=== PATIENT | female | born 1960 | race Caucasian/White ===

== ENCOUNTER 2018-01-04 18:22 | Inpatient (IN) ==
--- NOTE | 2018-01-04 19:15 | Emergency Department Note ---
Disposition Clinical Impression: Dehydration, Diarrhea, Hypokalemia, Abdominal pain, Pancreatitis Disposition: Admitted As Inpatient Condition: Serious Referrals: Benji Chavarria MD [Primary Care Provider] - Time of Disposition: 19:30 General Adult HPI - General Chief complaint: ED General Medical Stated complaint: general Time Seen by Provider: 01/04/18 18:26 Source: patient Limitations: no limitations Nursing Notes Reviewed: Yes Vital Signs Reviewed: Yes - History of Present Illness HPI Narrative: Patient presents today with CC of: abnormal labwork, abd pain, diarrhea Patient describes issue began around about 7 days ago patient started having abdominal discomfort nausea and diarrhea last Wednesday she had significant amounts intermittently she has had irritation to her bottom causing a little bit of blood when she wipes. Her provider today check lab work and found her amylase and lipase elevated as well as her potassium significantly low so they recommended she come to the hospital for admission and IV hydration and replacement of her potassium. Patient has had 67 loose diarrhea stools today and she also brought in a stool specimen. 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 She generally feels weak and does not really have any abdominal pain at this time and she is not actually had any vomiting. Pain Scale: 3 - Related Data Home Medications Medication Instructions Recorded Confirmed Buspirone [Buspar] 15 mg PO BID 12/31/14 01/04/18 [place]-3 Fatty Acids/Fish Oil [Fish 1 cap PO DAILY 12/31/14 01/04/18 Oil 1,000 mg Capsule] Zonisamide [Zonegran] 200 mg PO BID 12/31/14 01/04/18 Cetirizine HCl [Zyrtec] 10 mg PO BID 04/11/15 01/04/18 Citalopram Hydrobromide [Celexa] 20 mg PO DAILY 04/11/15 01/04/18 Ferrous Sulfate 325 mg PO DAILY 04/11/15 01/04/18 Magnesium 250 mg PO HS 04/11/15 01/04/18 Multivitamin/Iron/Folic Acid 1 each PO DAILY 04/11/15 01/04/18 [Centrum Complete Multivit Tab] DiphenhydraMINE [Benadryl] 25 mg PO BID 08/18/17 01/04/18 Docusate [Colace] 100 mg PO DAILY 08/18/17 01/04/18 Sennosides [Senna] 8.6 mg PO DAILY 08/18/17 01/04/18 Esomeprazole Magnesium [Nexium] 20 mg PO DAILY 01/04/18 01/04/18 Ranitidine HCl [Acid [employer] Architect] 150 mg PO BID 01/04/18 01/04/18 Previous Rx's Medication Instructions Recorded Pantoprazole Sodium [Protonix] 1 tab PO DAILY #30 tablet. 04/27/16 Calcium Carbonate/Vitamin D3 1 each PO DAILY #30 tablet 08/03/17 [Calcium 600 + Vit D Tablet] Letrozole [Femara] 2.5 mg PO DAILY #90 tablet 12/03/17 Allergies Allergy/AdvReac Type Severity Reaction Status Date / Time No Known Allergies Allergy Verified 01/04/18 18:45 All systems ED: reviewed and negative except as stated. 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 The patient 's medications, allergies, and medical history was reviewed. Family, Social & Surg histories were reviewed and are not relevant except as noted above in the history of present illness, or below in the respective specific section. I have reviewed and agree with all vital signs synchronously available in EMR at the time of this dictation. Times documented are the time of computer entry, are not necessarily the time the event occurred. At least 10 systems reviewed with patient or surrogate during physical exam and are otherwise negative. Physical EXAM: General ~ Constitutional: Conscious & cooperative , generally healthy appearance Head: NCAT Eyes: Sclera white , conjunctiva clear , PERRL, non-icteric ENT : Nose with pink nasal mucosa , nares patent, non tender without bleeding Mouth - mucous membrane moist but tacky dry , pink , no lesions , no trismus Neck - no masses , supple , no cervical spinous process tenderness Pharynx - no exudate , no petechia or obvious lesions , no airway obstruction or stridor Hematologic ~ Lymphatic ~ Immunologic: Lymphadenopathy normal , no petechia , Skin color, nails and pulses unremarkable. Heart ~ Chest: Reg rate , nml Rhythm , nl S1/S2 , no MRG Lungs: Breath sounds equal , clear to auscultation bilaterally , no wheezing, no rales or rhonchi , no CVA tenderness Gastrointestinal ~ Abd: Soft & slight epigastric tenderness , BS + in 4 quads , No HSM or masses , no peritoneal signs, no rebound or guarding GenitoUrinary: Deferred Musculoskeletal ~ Back ~ Extremities: Warm and w/o clubbing , cyanosis , or edema. No point tenderness , good ROM of major joints Neurologic: Cranial nerves grossly intact, good muscle strength , attention good , cooperative , Alert and oriented x4 Psychiatric: Calm , Insight and mood appropriate , Skin: No rashes , good skin turgor , cap refill 3 seconds , warm and dry - General Limitations: no limitations General appearance: alert, in no apparent distress Course Vital Signs Temperature 98.3 F 01/04/18 18:39 Pulse Rate 98 01/04/18 18:39 Respiratory Rate 16 01/04/18 18:39 Blood Pressure 131/84 01/04/18 18:39 O2 Sat by Pulse Oximetry 95 01/04/18 18:39 Temperature 98.3 F 01/04/18 18:39 Pulse Rate 98 01/04/18 18:39 Respiratory Rate 16 01/04/18 18:39 Blood Pressure 131/84 01/04/18 18:39 O2 Sat by Pulse Oximetry 95 01/04/18 18:39 Oxygen Delivery Oxygen Delivery Room Air Medical Decision Making - MDM Narrative Medical decision making narrative: MDM: History and physical exam is consistent with - abdominal pain, diarrhea, dehydration, hypokalemia, mild pancreatitis DDx included multiple etiologies for the symptoms such as - electrolyte abnormality, ureterolithiasis, diverticulitis, adhesions, bowel obstruction, mesenteric ischemia, AAA, dissection, UTI, sepsis. XRAYS: Not indicated at this time Critical Care: None Condition and evaluation here was discussed in detail. Patient is agreeable to being admitted to the hospital for IV fluids and potassium replacement, recheck of her lab work in the morning. I discussed patient detail with Dr. Laird who agreed to the patient for IV fluids and potassium replacement as well as monitoring of lipase - Lab Data Lab Results 01/04/18 Range/Units 18:00 Stool Occult Blood Positive A (Negative) - EKG Data EKG #1 EKG results narrative: EKG shows sinus rhythm with nonspecific ST and T-wave changes primarily T-wave flattening. There is no acute injury pattern. Patient's rate is 85. AL interval 157. QRS duration 87. QTC 365.
[2018-01-04] MEDS ORDERED: 0.9 % Sodium Chloride w KCl 20 MEQ/1,000 ML MLS IVC SCH (19:30)
[2018-01-04] MEDS ORDERED: Naloxone 0.4 MG/ML INJ IVP PRN ×2 (19:38→20:45)
[2018-01-04] MEDS: Magnesium Oxide 400 MG TABLET PO SCH (21:00)
[2018-01-04] MEDS: Loratadine 10 MG TABLET PO SCH (21:00)
[2018-01-04] MEDS: Famotidine 20 MG TABLET PO SCH (21:00)
[2018-01-04] MEDS: 0.9 % Sodium Chloride w KCl 20 MEQ/1,000 ML MLS IVC SCH (21:45)
[2018-01-05] MEDS: 0.9 % Sodium Chloride w KCl 20 MEQ/1,000 ML MLS IVC SCH ×3 (02:28→16:37)
[2018-01-05 04:47] LABS: Basophils # 0.1 K/mcL (0.0-0.2); Eosinophils # 0.1 K/mcL (0.0-0.6); Eosinophils % 1.9 %; Immature Granulocytes % 0.5 % (0-4); Lymphocytes # 1.9 K/mcL (0.6-4.6); Lymphocytes % 30.6 %; Mean Corpuscular HGB Conc 34.1 g/dL (31.6-35.5); Mean Corpuscular Hemoglobin 30.9 pg (28.0-33.3); Mean Corpuscular Volume 90.7 fL (83.0-100.0); Mean Platelet Volume 10.2 fL (9.4-12.4); Monocytes # 0.9 K/mcL (0.0-1.3); Monocytes % 15.2 %; Neutrophils # 3.1 K/mcL (1.6-8.9); Platelet Count 226 K/mcL (140-400); Red Cell Distribution Width 13.1 % (11.5-14.5); Segmented Neutrophils % 50.8 %
[2018-01-05 04:48] LABS: Hemoglobin 13.3 g/dL (11.5-15.4)
[2018-01-05] MEDS ORDERED: PANTOPRAZOLE SODIUM PO SCH (09:00)
[2018-01-05] MEDS: Letrozole 2.5 MG TABLET PO SCH (09:06)
[2018-01-05] MEDS: Loratadine 10 MG TABLET PO SCH (09:06)
[2018-01-05] MEDS: Famotidine 20 MG TABLET PO SCH ×2 (09:06→20:11)
--- NOTE | 2018-01-05 10:28 | Internal Med History&Physical ---
Date of Encounter: 01/05/18 Time of Encounter: 10:25 Assessment and Plan (1) Hypokalemia Current visit: Yes Status: Acute CMP and mag ordered. will follow for results. (2) Pancreatitis Current visit: Yes Status: Acute lipase elevated. amylase ordered. ultrasound abd ordered. NPO. will follow for results. Qualifiers: Chronicity: acute Pancreatitis type: unspecified pancreatitis type Acute pancreatitis complication: unspecified Qualified Code(s): K85.90 - Acute pancreatitis without necrosis or infection, unspecified Internal Medicine - H&P: HPI Admitted From: Emergency Dept Plans for Post Hospital Care: Home History of present illness: Ms. Kidd is a 57 year old female transferred from emergency room admitted for observation with 7 day history of abdominal pain, nausea and diarrhea. States abdominal pain is an epi gastric burning sensation. Reports having lost around 8 pounds since the past week. Was sent by provider due to hypokalemia and elevated amylase and lipase. States she has had her gallbladder removed in the past. stool was + for occult blood. hgb stable 13.3. at bedside. Past Med Surg Social Fam HX - Past Medical History Medical history: cancer, GERD, hyperlipidemia, hypertension, migraine, seizures , syncope Additional medical history: LEFT BREAST CANCER Psychiatric history: anxiety, depression - Past Surgical History Surgical History: cholecystectomy Additional surgical history: RIGHT BREAST BIOPSY, LEFT BREAST BIOPSY, LEFT AXILLARY BIOPSY, LASER CERVICAL SURGERY - Social History Smoking Status: Never smoker Smokeless Tobacco Status: No Alcohol use: none Drug use: none - Family History Mother Living Status: Hx Family Cardiac Disorders: Yes Father Living Status: Hx Family Cardiac Disorders: Yes Brother Living Status: Still Living Hx Family Cardiac Disorders: Yes (HTN) Hx Family Endocrine Disorder: Yes Sister Adopted: [place]: Jasmine Age: 71 Family Member Ethnicity: Non- Living Status: Still Living Hx Family Cardiac Disorders: Yes Hx Family Respiratory Disorders: Yes Hx Family Cancer: Yes Hx Family GI Disorders: Yes Hx Family Genitourinary Disorders: No Hx Family Endocrine Disorder: Yes Hx Family Musculoskeletal Disorders: No Hx Family Neuromuscular Disorders: No Hx Family Neurologic Disorders: No Hx Family HEENT Disorders: No Hx Family Autoimmune Disorders: No Hx Family Reproductive Disorders: No Hx Family Psychosocial Disorders: No Hx Family Medical Disorders: No Internal Medicine - H&P: Meds Buspirone [Buspar] 15 mg PO BID 12/31/14 [History] [place]-3 Fatty Acids/Fish Oil [Fish Oil 1,000 mg Capsule] 1 cap PO DAILY [History] Zonisamide [Zonegran] 200 mg PO BID 12/31/14 [History] Cetirizine HCl [Zyrtec] 10 mg PO BID 04/11/15 [History] Citalopram Hydrobromide [Celexa] 20 mg PO DAILY 04/11/15 [History] Ferrous Sulfate 325 mg PO DAILY 04/11/15 [History] Magnesium 250 mg PO HS 04/11/15 [History] Multivitamin/Iron/Folic Acid [Centrum Complete Multivit Tab] 1 each PO DAILY 05/14 [History] Pantoprazole Sodium [Protonix] 1 tab PO DAILY #30 tablet. 04/27/16 [Rx] Calcium Carbonate/Vitamin D3 [Calcium 600 + Vit D Tablet] 1 each PO DAILY #30 tablet 08/03/17 [Rx] DiphenhydraMINE [Benadryl] 25 mg PO BID 08/18/17 [History] Docusate [Colace] 100 mg PO DAILY 08/18/17 [History] Sennosides [Senna] 8.6 mg PO DAILY 08/18/17 [History] Letrozole [Femara] 2.5 mg PO DAILY #90 tablet 12/03/17 [Rx] 3 Allergy/AdvReac Type Severity Reaction Status Date / Time No Known Allergies Allergy Verified 01/04/18 18:45 All Systems PM: A 10-system review of systems was performed and is negative for pertinent findings except as documented above in the HPI. - Constitutional Constitutional: no chills, no fever(s), no night sweats - EENT Eyes: no change in vision, no discharge, no pain, no photophobia Ears: no ear discharge, no ear pain, no tinnitus Nose, mouth and throat: no dysphagia, no nasal discharge, no neck pain, no sore throat - Cardiovascular Cardiovascular ROS IM: no chest pain, no diaphoresis, no dyspnea, no lightheadedness, no palpitations, no syncope - Respiratory Respiratory: no cough, no dyspnea, no wheezing, no excessive phlegm production - Gastrointestinal Gastrointestinal: no abdominal pain, no diarrhea, no hematemesis, no hematochezia, no melena, no nausea, no vomiting - Genitourinary Genitourinary: no change in urinary stream, no dysuria, no flank pain, no hematuria - Musculoskeletal Musculoskeletal ROS IM: no numbness, no tingling - Integumentary Integumentary IM: no rash, no unusual bruising - Neurological Neurological ROS: no confusion, no convulsions, no focal weakness, no numbness, no tingling, no tremor(s) - Hematologic/Lymphatic Hematologic/Lymphatic: no easy bruising - Constitutional Vitals: Temp Pulse Resp BP Pulse Ox 98.0 F 73 17 97/58 95 01/05/18 07:43 01/05/18 07:43 01/05/18 04:02 01/05/18 07:43 01/05/18 07:43 General appearance: Present: cooperative, A&O X 3, no acute distress, answers questions appropriately - Head Head exam: Present: atraumatic, normocephalic - Eye Eye exam: Present: PERRL, conjuntiva pink, sclera anicteric Pupils: Present: PERRL - Neck Neck exam general surgery: Present: supple, trachea midline. Absent: lymphadenopathy - Respiratory Respiratory exam: Present: CTAB. Absent: accessory muscle use, rales, rhonchi, wheezes - Cardiovascular Cardiovascular exam: Present: RRR, +S1, +S2. Absent: diastolic murmur, gallop, rubs, systolic murmur - GI/Abdominal GI/Abdominal exam: Present: normal bowel sounds, soft, no peritoneal signs. Absent: distended, tenderness - Extremities Exam Extremities exam: Present: warm, radial pulses palpable and symmetrical. Absent : calf tenderness, cyanotic, pedal edema - Neurological Exam Neurological exam: Present: CN II-XII intact, oriented X3, no focal deficits. Absent: pronater drift, facial droop, speech deficit - Skin Skin exam: Present: dry, intact Internal Med - H&P Results - Labs CBC & Chem 7: 01/05/18 04:35 Labs: Short CBC 01/05/18 Range/Units 04:35 WBC 6.2 (4.3-11.1) K/mcL Hgb 13.3 D (11.5-15.4) g/dL Hct 39.0 (35.3-44.9) % Plt Count 226 (140-400) K/mcL Neutrophils # 3.1 (1.6-8.9) K/mcL - VTE Documentation of Mechanical Device: Intermittent pneumatic compression device
[2018-01-05 10:54] LABS: Alanine Aminotransferase 16 Units/L (7-52); Albumin 3.5 g/dL (3.5-5.7); Albumin/Globulin Ratio 1.6 (1.1-2.2); Alkaline Phosphatase 51 Units/L (34-104); Amylase 35 Units/L (29-103); Aspartate Amino Transferase 18 Units/L (13-39); BUN/Creatinine Ratio 17 (6-26); Bilirubin,Total 0.6 mg/dL (0.3-1.0); Blood Urea Nitrogen 16 mg/dL (6-20); Calcium 8.2 mg/dL (8.6-10.3); Carbon Dioxide 22 mEq/L (23-29); Chloride 109 mEq/L (98-107); Globulin 2.2 g/dL (2.4-3.5); Glucose 90 mg/dL (70-105); Magnesium 1.5 mg/dL (1.6-2.6); Osmolality,Calculated 291 (280-300); Potassium 2.9 mEq/L (3.5-5.1); Sodium 140 mEq/L (136-145); Total Protein 5.7 g/dL (6.4-8.9); eGFR For Non-African Americans > 60 (> 60)
[2018-01-05 10:58] LABS: C.difficile Toxin A/B by PCR Not detected (Not detect); Campylobacter by PCR Not detected (Not detect); Plesiomonas shigelloides PCR Not detected (Not detect)
[2018-01-05 10:59] LABS: Enteroaggregative E.coli(EAEC) Not detected (Not detect); Salmonella PCR DETECTED (Not detect); Vibrio PCR Not detected (Not detect); Vibrio cholerae PCR Not detected (Not detect); Yersinia enterocolitica PCR Not detected (Not detect)
[2018-01-05 11:00] LABS: Adenovirus F 40/41 PCR Not detected (Not detect); Astrovirus PCR Not detected (Not detect); Cryptosporidium by PCR Not detected (Not detect); Cyclospora cayetanensis PCR Not detected (Not detect); E. coli O157 by PCR Not detected (Not detect); Entamoeba histolytica PCR Not detected (Not detect); Enteropathogenic E.coli(EPEC) Not detected (Not detect); Enterotoxigenic E.coli (ETEC) Not detected (Not detect); Giardia lamblia PCR Not detected (Not detect); Norovirus GI/GII PCR Not detected (Not detect); Rotavirus A PCR Not detected (Not detect); Sapovirus PCR Not detected (Not detect); Shig/EnteroinvasiveE coli EIEC Not detected (Not detect); Shigalike tox-prod E coli STEC Not detected (Not detect)
[2018-01-05] MEDS: Levofloxacin 500 MG/100 ML 500 MG/100 ML BAG IVPB SCH (16:37)
--- NOTE | 2018-01-05 17:06 | Electrocardiograph Report ---
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
--- NOTE | 2018-01-05 17:11 | Electrocardiograph Report ---
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
[2018-01-05] MEDS: Magnesium Oxide 400 MG TABLET PO SCH (20:12)
[2018-01-06] MEDS: 0.9 % Sodium Chloride w KCl 20 MEQ/1,000 ML MLS IVC SCH ×2 (00:20→07:16)
[2018-01-06 06:27] LABS: Basophils # 0.1 K/mcL (0.0-0.2); Basophils % 1.1 %; Eosinophils # 0.1 K/mcL (0.0-0.6); Eosinophils % 2.7 %; Hematocrit 35.7 % (35.3-44.9); Hemoglobin 12.1 g/dL (11.5-15.4); Immature Granulocytes % 0.9 % (0-4); Lymphocytes # 1.9 K/mcL (0.6-4.6); Lymphocytes % 42.2 %; Mean Corpuscular HGB Conc 33.9 g/dL (31.6-35.5); Mean Corpuscular Hemoglobin 31.1 pg (28.0-33.3); Mean Corpuscular Volume 91.8 fL (83.0-100.0); Mean Platelet Volume 10.3 fL (9.4-12.4); Monocytes # 0.6 K/mcL (0.0-1.3); Monocytes % 12.5 %; Neutrophils # 1.8 K/mcL (1.6-8.9); Platelet Count 225 K/mcL (140-400); Red Blood Count 3.89 M/mcL (3.82-4.97); Red Cell Distribution Width 13.2 % (11.5-14.5); Segmented Neutrophils % 40.6 %
[2018-01-06 06:42] LABS: Alanine Aminotransferase 13 Units/L (7-52); Albumin 3.5 g/dL (3.5-5.7); Albumin/Globulin Ratio 1.8 (1.1-2.2); Alkaline Phosphatase 49 Units/L (34-104); Aspartate Amino Transferase 15 Units/L (13-39); BUN/Creatinine Ratio 9 (6-26); Bilirubin,Total 0.5 mg/dL (0.3-1.0); Blood Urea Nitrogen 6 mg/dL (6-20); Calcium 7.2 mg/dL (8.6-10.3); Carbon Dioxide 20 mEq/L (23-29); Chloride 113 mEq/L (98-107); Glucose 74 mg/dL (70-105); Osmolality,Calculated 290 (280-300); Potassium 3.1 mEq/L (3.5-5.1); Sodium 142 mEq/L (136-145); Total Protein 5.5 g/dL (6.4-8.9); eGFR For Non-African Americans > 60 (> 60)
[2018-01-06] MEDS: Levofloxacin 500 MG/100 ML 500 MG/100 ML BAG IVPB SCH (08:06)
[2018-01-06 09:25] LABS: Amylase 33 Units/L (29-103); Lipase 162 Units/L (11-82)
[2018-01-06] MEDS: Letrozole 2.5 MG TABLET PO SCH (09:48)
[2018-01-06] MEDS: Famotidine 20 MG TABLET PO SCH ×2 (09:48→20:18)
[2018-01-06] MEDS: Loratadine 10 MG TABLET PO SCH (09:48)
--- NOTE | 2018-01-06 10:56 | Internal Med Progress Note ---
Date of Encounter: 01/06/18 Time of Encounter: 10:54 - Assessment and plan (1) Diarrhea Current Visit: Yes Status: Acute Assessment and plan: Patient continues to have frequent watery stools. Noted hyperactive bowel sounds but no tenderness or abdominal cramping. Patient showed Salmonella PCR and awaiting final culture results. Patient currently receiving Levophed and will continue with current antibiotic until cultures are received. We will continue to monitor patient's fluid status and electrolytes. Patient denies any other issues. Remains afebrile Qualifiers: Diarrhea type: infectious Qualified Code(s): A09 - Infectious gastroenteritis and colitis, unspecified (2) Hypokalemia Current Visit: Yes Status: Acute Assessment and plan: Patient's current potassium today was 3.1. We will review patient's most recent labs and medication list for replacement. Likely secondary to frequent stools - Time Spent With Patient less than 15 minutes - Subjective Interval history: Patient appears relaxed and currently denies any discomforts or shortness of breath. Patient does state that she continues to have multiple small watery stools. Denies any abdominal cramping or tenderness during the exam. Denies any fever or chills. - Constitutional Vitals: Temp Pulse Resp BP Pulse Ox 98.5 F 71 18 143/64 97 01/06/18 08:00 01/06/18 08:00 01/06/18 08:00 01/06/18 08:00 01/06/18 08:00 General appearance: Present: cooperative, A&O X 3, no acute distress, answers questions appropriately - Head Head exam: Present: atraumatic, normocephalic - Eye Eye exam: Present: PERRL, conjuntiva pink, sclera anicteric Pupils: Present: PERRL - Neck Neck exam general surgery: Present: supple, trachea midline. Absent: lymphadenopathy - Respiratory Respiratory exam: Present: CTAB. Absent: accessory muscle use, rales, rhonchi, wheezes - Cardiovascular Cardiovascular exam: Present: RRR, +S1, +S2. Absent: diastolic murmur, gallop, rubs, systolic murmur - GI/Abdominal GI/Abdominal exam: Present: hyperactive bowel sounds, normal bowel sounds, soft , no peritoneal signs. Absent: distended, tenderness - Extremities Exam Extremities exam: Present: warm, radial pulses palpable and symmetrical. Absent : calf tenderness, cyanotic, pedal edema - Neurological Exam Neurological exam: Present: CN II-XII intact, oriented X3, no focal deficits. Absent: pronater drift, facial droop, speech deficit - Skin Skin exam: Present: dry, intact Internal Medicine: Result - Labs CBC & Chem 7: 01/06/18 06:15 01/06/18 06:15 Labs: Short CBC 01/06/18 Range/Units 06:15 WBC 4.4 (4.3-11.1) K/mcL Hgb 12.1 (11.5-15.4) g/dL Hct 35.7 (35.3-44.9) % Plt Count 225 (140-400) K/mcL Neutrophils # 1.8 (1.6-8.9) K/mcL BMP 01/05/18 01/06/18 04:30 06:15 Sodium 140 142 Potassium 2.9 L 3.1 L Chloride 109 H 113 H Carbon Dioxide 22 L 20 L BUN 16 6 Creatinine 0.95 0.70 Glucose 90 74 Calcium 8.2 L 7.2 L Liver Function 01/05/18 01/06/18 Range/Units 04:30 06:15 Total Bilirubin 0.6 0.5 (0.3-1.0) mg/dL AST 18 15 (13-39) Units/L ALT 16 13 (7-52) Units/L Alkaline Phosphatase 51 49 (34-104) Units/L Albumin 3.5 3.5 (3.5-5.7) g/dL - Impressions Impressions Abdomen Ultrasound 01/06/18 08:00 IMPRESSION: 1. Status post cholecystectomy. Otherwise unremarkable right upper quadrant ultrasound. D/ / Debbie Ambriz MD / Debbie Ambriz MD Interpreting Provider: Debbie Ambriz MD - VTE Reasons for not Prescribing Prophylaxis: Treatment not Indicated - Low risk for VTE Documentation of Mechanical Device: Graduated compression elastic hosiery Consult Discharge Plan - Plan Referrals: Benji Chavarria MD [Primary Care Provider] -
[2018-01-06] MEDS: Magnesium Oxide 400 MG TABLET PO SCH (20:18)
[2018-01-07 06:10] LABS: Basophils % 0.9 %; Eosinophils # 0.1 K/mcL (0.0-0.6); Eosinophils % 2.2 %; Hemoglobin 12.4 g/dL (11.5-15.4); Immature Granulocytes % 1.1 % (0-4); Lymphocytes # 1.8 K/mcL (0.6-4.6); Lymphocytes % 39.5 %; Mean Corpuscular HGB Conc 33.5 g/dL (31.6-35.5); Mean Corpuscular Hemoglobin 30.6 pg (28.0-33.3); Mean Corpuscular Volume 91.4 fL (83.0-100.0); Mean Platelet Volume 10.5 fL (9.4-12.4); Monocytes # 0.4 K/mcL (0.0-1.3); Monocytes % 8.7 %; Neutrophils # 2.1 K/mcL (1.6-8.9); Platelet Count 234 K/mcL (140-400); Red Blood Count 4.05 M/mcL (3.82-4.97); Red Cell Distribution Width 13.3 % (11.5-14.5); Segmented Neutrophils % 47.6 %
[2018-01-07] MEDS: Famotidine 20 MG TABLET PO SCH ×2 (09:18→21:59)
[2018-01-07] MEDS: Letrozole 2.5 MG TABLET PO SCH (09:19)
[2018-01-07] MEDS: Loratadine 10 MG TABLET PO SCH (09:19)
[2018-01-07] MEDS: Levofloxacin 500 MG/100 ML 500 MG/100 ML BAG IVPB SCH (09:21)
--- NOTE | 2018-01-07 11:10 | Internal Med Progress Note ---
Date of Encounter: 01/07/18 Time of Encounter: 11:08 - Assessment and plan (1) Diarrhea Current Visit: Yes Status: Acute Assessment and plan: This is improved. She has Salmonella which has cultured positive. She is to be maintained on IV Levaquin for another day, pending sensitivities. If she is doing well, will discharge after additional IV dose this evening or tomorrow. Perirectal pain and discomfort is much better with decreased diarrhea and after the use of Aquaphor. Lipase is probably due to Salmonella and no pancreatic abnormality, per ultrasound. Qualifiers: Diarrhea type: infectious Qualified Code(s): A09 - Infectious gastroenteritis and colitis, unspecified (2) Nausea Current Visit: No Status: Acute Assessment and plan: Improved and essentially resolved. (3) Hypokalemia Current Visit: Yes Status: Acute Assessment and plan: Improved, will do another laboratory assessment today. - Subjective Interval history: Patient has less loose stool, now says there is sediment in loose bowel movement. Only 2 since yesterday afternoon. No abdominal pain, tolerating diet , no other complaints. Feeling generally better. Patient has no complaint of chest discomfort, dyspnea, orthopnea, palpitations, nausea or vomiting, constipation or diarrhea, other changes in bowel habits, difficulty with urination, rash or itching, or other new complaints, except as mentioned above. Review of systems is otherwise negative. - Constitutional Vitals: Temp Pulse Resp BP Pulse Ox 97.8 F 71 16 103/66 98 01/07/18 07:43 01/07/18 07:43 01/07/18 07:43 01/07/18 07:43 01/07/18 07:43 General appearance: Present: cooperative, answers questions appropriately Exam: Examination: (Except as mentioned above): General: In no apparent distress. Alert and oriented 3. Nondiaphoretic. Head: Atraumatic and normocephalic. Respiratory: No use of accessory muscles. Lungs are clear throughout. Normal airflow. Cardiovascular: Regular rate and rhythm without murmur appreciated. Abdomen: Bowel sounds are normal. No hepatosplenomegaly or major tenderness. Has right upper quadrant to epigastric tenderness, minimal and much improved. Obese and therefore difficult to palpate deeply. Extremities: No cyanosis clubbing or edema. Skin: Warm and non-diaphoretic with no new lesions noted. Internal Medicine: Result - Labs CBC & Chem 7: 08/10/18 05:50 01/06/18 06:15 Labs: Short CBC 01/07/18 Range/Units 05:50 WBC 4.5 (4.3-11.1) K/mcL Hgb 12.4 (11.5-15.4) g/dL Hct 37.0 (35.3-44.9) % Plt Count 234 (140-400) K/mcL Neutrophils # 2.1 (1.6-8.9) K/mcL - VTE Reasons for not Prescribing Prophylaxis: Treatment not Indicated - Low risk for VTE Documentation of Mechanical Device: Graduated compression elastic hosiery Consult Discharge Plan - Plan Referrals: Benji Chavarria MD [Primary Care Provider] -
--- NOTE | 2018-01-07 11:43 | Discharge Summary ---
<Jeison Martin Haylee - Last Filed: 01/07/18 11:35> Orders not resulted at time of discharge: Pending orders 01/07/18 11:01 Amylase Stat Comprehensive Metabolic Panel Stat Lipase Stat 01/07/18 11:18 Magnesium Stat 01/08/18 04:00 Complete Blood Count [HEME] AM 0400 Lipase AM 0400 Date of Encounter: 01/07/18 Time of Encounter: 11:35 - Discharge Diagnosis (1) Diarrhea Priority: Primary Status: Acute Comments: Patient was admitted for several days of diarrhea with preliminary culture showing salmonella infection. Patient continued to have diarrhea during her admission, but her stooling frequency decreased and the characteristic of her stool began to solidify. Patient was started on Levaquin IV upon admission and will be discharged with a 5 day supply of oral Levaquin. Patient experienced an elevation of lipase to 162, which was secondary to her salmonella infection. Amylase remained normal. Patient experienced some abdominal tenderness on deep palpation, but denied any abdominal cramping. Patient to f/u with PCP after discharge. Qualifiers: Diarrhea type: infectious Qualified Code(s): A09 - Infectious gastroenteritis and colitis, unspecified (2) Hypokalemia Priority: Secondary Status: Acute Comments: No acute issues. Patient experienced hypokalemia and rec'd replacement. Will continue follow-up with PCP after discharge. Would recommend repeat of chemistry labs in 1 week. Hospital course: Ms. Kidd is a 57 year old female who was admitted for observation with 7 day history of abdominal pain, nausea and diarrhea. States abdominal pain is an epi gastric burning sensation. Reported having lost around 8 pounds since the past week. Was sent by provider due to hypokalemia and elevated lipase. States she has had her gallbladder removed in the past. stool was + for occult blood. Preliminary from culture showed Salmonella. Patient continued to have diarrhea during her admission, but her stooling frequency decreased and the characteristic of her stool began to solidify. Patient was started on Levaquin IV upon admission and will be discharged with a 5 day supply of oral Levaquin. Patient experienced an elevation of lipase to 162, which was secondary to her salmonella infection. Amylase remained normal. Patient experienced some abdominal tenderness on deep palpation, but denied any abdominal cramping. Patient had a gallbladder ultrasound which showed no acute issues. Patient to f /u with PCP after discharge. Discharge discussed with: patient Time spent discussing smoking cessation with patient: 3 to 10 minutes - Time Spent with Patient Total time spent providing and/or coordinating discharge services: Less than 30 minutes - Discharge Medications Prescriptions: Potassium Chloride 20 meq PO BID 15 Days #30 tab.er.prt Home Medications: Buspirone [Buspar] 15 mg PO BID 12/31/14 [History] [place]-3 Fatty Acids/Fish Oil [Fish Oil 1,000 mg Capsule] 1 cap PO DAILY [History] Zonisamide [Zonegran] 200 mg PO BID 12/31/14 [History] Cetirizine HCl [Zyrtec] 10 mg PO BID 04/11/15 [History] Citalopram Hydrobromide [Celexa] 20 mg PO DAILY 04/11/15 [History] Ferrous Sulfate 325 mg PO DAILY 04/11/15 [History] Magnesium 250 mg PO HS 04/11/15 [History] Multivitamin/Iron/Folic Acid [Centrum Complete Multivit Tab] 1 each PO DAILY 05/14 [History] Pantoprazole Sodium [Protonix] 1 tab PO DAILY #30 tablet.dr 04/27/16 [Rx] Calcium Carbonate/Vitamin D3 [Calcium 600 + Vit D Tablet] 1 each PO DAILY #30 tablet 08/03/17 [Rx] DiphenhydraMINE [Benadryl] 25 mg PO BID 08/18/17 [History] Docusate [Colace] 100 mg PO DAILY 08/18/17 [History] Sennosides [Senna] 8.6 mg PO DAILY 08/18/17 [History] Letrozole [Femara] 2.5 mg PO DAILY #90 tablet 12/03/17 [Rx] Potassium Chloride 20 meq PO BID 15 Days #30 tab.er.prt 01/07/18 [Rx] Allergies/Adverse Reactions: 3 Allergy/AdvReac Type Severity Reaction Status Date / Time No Known Allergies Allergy Verified 01/04/18 18:45 Date of admission: 01/06/18 10:52 Primary care physician: Benji Chavarria MD Discharging clinician: Nick Laird - Constitutional Vitals: Temp Pulse Resp BP Pulse Ox 97.8 F 71 16 103/66 98 01/07/18 07:43 01/07/18 07:43 01/07/18 07:43 01/07/18 07:43 01/07/18 07:43 General appearance: Present: cooperative, answers questions appropriately - Head Head exam: Present: atraumatic, normocephalic - Eye Eye exam: Present: PERRL, conjuntiva pink, sclera anicteric Pupils: Present: PERRL - Neck Neck exam general surgery: Present: supple, trachea midline. Absent: lymphadenopathy - Respiratory Respiratory exam: Present: CTAB. Absent: accessory muscle use, rales, rhonchi, wheezes - Cardiovascular Cardiovascular exam: Present: RRR, +S1, +S2. Absent: diastolic murmur, gallop, rubs, systolic murmur - GI/Abdominal GI/Abdominal exam: Present: normal bowel sounds, soft, no peritoneal signs. Absent: distended, tenderness - Extremities Exam Extremities exam: Present: warm, radial pulses palpable and symmetrical. Absent : calf tenderness, cyanotic, pedal edema - Neurological Exam Neurological exam: Present: CN II-XII intact, oriented X3, no focal deficits. Absent: pronater drift, facial droop, speech deficit - Skin Skin exam: Present: dry, intact - Patient Status Disposition: Home, Self-Care Condition: Serious Overall status at discharge: patient is progressing back to baseline - Discharge Instructions Follow Up With: Benji Chavarria MD [Primary Care Provider] - Forms: Inpatient Work/School Release - Diet and Activity Activity: increase activity as tolerated Diet: advance to your usual diet - VTE Reasons for not Prescribing Prophylaxis: Treatment not Indicated - Low risk for VTE Documentation of Mechanical Device: Graduated compression elastic hosiery <Nick Laird - Last Filed: 01/08/18 10:35> - NOTES TO OUTPATIENT PROVIDER Notes to Outpatient Provider: Patient is to have 10 days of oral Levaquin for Salmonella gastroenteritis. Date of Encounter: 01/08/18 - Discharge Diagnosis (1) Diarrhea Priority: Primary Status: Acute Qualifiers: Diarrhea type: infectious Qualified Code(s): A09 - Infectious gastroenteritis and colitis, unspecified (2) Nausea Priority: Secondary Status: Acute (3) Hypokalemia Priority: Secondary Status: Acute Hospital course: As above, will be treated with 10 days of oral Levaquin and 5 days of oral potassium. At the time of discharge, potassium had returned to acceptable levels. She has been instructed to avoid dairy for at least a week. - Time Spent with Patient Total time spent providing and/or coordinating discharge services: Date of admission: 01/06/18 10:52 Primary care physician: Benji Chavarria MD Anticipated date of discharge: 01/08/18 - Constitutional Vitals: Temp Pulse Resp BP Pulse Ox 97.7 F 58 16 107/61 98 01/08/18 07:28 01/08/18 07:28 01/07/18 19:38 01/08/18 07:28 01/08/18 07:28 Exam: Examination: (Except as mentioned above): General: In no apparent distress. Alert and oriented 3. Nondiaphoretic. Head: Atraumatic and normocephalic. Respiratory: No use of accessory muscles. Lungs are clear throughout. Normal airflow. Cardiovascular: Regular rate and rhythm without murmur appreciated. Abdomen: Bowel sounds are normal. No hepatosplenomegaly mass or tenderness appreciated. In other words, tenderness has totally resolved. Obese and therefore difficult to palpate deeply. Extremities: No cyanosis clubbing or edema. Skin: Warm and non-diaphoretic with no new lesions noted. - Patient Status Functional capacity at discharge: independent ambulation Overall status at discharge: patient is progressing back to baseline - Diet and Activity Activity: increase activity as tolerated Diet: advance to your usual diet
[2018-01-07 12:01] LABS: Alanine Aminotransferase 13 Units/L (7-52); Albumin 3.6 g/dL (3.5-5.7); Albumin/Globulin Ratio 1.6 (1.1-2.2); Alkaline Phosphatase 50 Units/L (34-104); Amylase 46 Units/L (29-103); Aspartate Amino Transferase 16 Units/L (13-39); BUN/Creatinine Ratio 8 (6-26); Bilirubin,Total 0.4 mg/dL (0.3-1.0); Blood Urea Nitrogen 6 mg/dL (6-20); Calcium 8.4 mg/dL (8.6-10.3); Carbon Dioxide 22 mEq/L (23-29); Chloride 110 mEq/L (98-107); Globulin 2.3 g/dL (2.4-3.5); Glucose 71 mg/dL (70-105); Lipase 259 Units/L (11-82); Osmolality,Calculated 284 (280-300); Potassium 3.4 mEq/L (3.5-5.1); Sodium 139 mEq/L (136-145); Total Protein 5.9 g/dL (6.4-8.9); eGFR For Non-African Americans > 60 (> 60)
[2018-01-07] MEDS: Magnesium Oxide 400 MG TABLET PO SCH (21:57)
[2018-01-08 05:50] LABS: Basophils # 0.1 K/mcL (0.0-0.2); Eosinophils # 0.1 K/mcL (0.0-0.6); Eosinophils % 2.5 %; Hematocrit 37.4 % (35.3-44.9); Hemoglobin 12.8 g/dL (11.5-15.4); Immature Granulocytes % 1.2 % (0-4); Lymphocytes # 2.2 K/mcL (0.6-4.6); Lymphocytes % 43.4 %; Mean Corpuscular HGB Conc 34.2 g/dL (31.6-35.5); Mean Corpuscular Hemoglobin 31.1 pg (28.0-33.3); Mean Platelet Volume 10.5 fL (9.4-12.4); Monocytes # 0.4 K/mcL (0.0-1.3); Neutrophils # 2.3 K/mcL (1.6-8.9); Platelet Count 238 K/mcL (140-400); Red Blood Count 4.11 M/mcL (3.82-4.97); Red Cell Distribution Width 13.4 % (11.5-14.5); Segmented Neutrophils % 44.9 %
[2018-01-08 06:02] LABS: BUN/Creatinine Ratio 13 (6-26); Blood Urea Nitrogen 10 mg/dL (6-20); Calcium 8.7 mg/dL (8.6-10.3); Carbon Dioxide 22 mEq/L (23-29); Chloride 112 mEq/L (98-107); Glucose 96 mg/dL (70-105); Osmolality,Calculated 291 (280-300); Potassium 3.7 mEq/L (3.5-5.1); Sodium 141 mEq/L (136-145); eGFR For Non-African Americans > 60 (> 60)
[2018-01-08 07:29] VITALS: BP 107/61
[2018-01-08] MEDS: Levofloxacin 500 MG/100 ML 500 MG/100 ML BAG IVPB SCH (09:17)
[2018-01-08] MEDS: Loratadine 10 MG TABLET PO SCH (09:18)
[2018-01-08] MEDS: Letrozole 2.5 MG TABLET PO SCH (09:18)
[2018-01-08] MEDS: Famotidine 20 MG TABLET PO SCH (09:18)
== END 2018-01-08 11:24 | disposition home or self-care (01) | DRG 373 ==
LOC: INPGRE 18:22 → EMEROOGRE 18:22 → INPGRE 20:40